=== PATIENT | male | born 2000 | race Caucasian/White ===

== ENCOUNTER 2022-01-09 22:52 | Emergency (ER) | payer OTHER ==
[2022-01-09] MEDS ORDERED: Morphine 4 MG/ML VIAL ONE ×2 (23:04→23:43)
[2022-01-09] MEDS ORDERED: Ondansetron PF 4 MG/2 ML Vial ONE (23:04)
[2022-01-09] MEDS ORDERED: Lactated Ringer's 1,000 ML ONE (23:22)
[2022-01-09] MEDS ORDERED: Bacitracin 1 PK ONE (23:42)
[2022-01-10] MEDS ORDERED: Morphine 4 MG/ML VIAL ONE (01:03)
[2022-01-10] MEDS ORDERED: Lactated Ringer's 1,000 ML ONE (01:03)
[2022-01-10] MEDS ORDERED: Boostrix 0.5 ML (Tdap) VIAL (>/=7 yrs of age) ONE (01:30)
[2022-01-10] MEDS ORDERED: Acetaminophen 325 MG TAB ONE (01:46)
[2022-01-10] MEDS ORDERED: HYDROcodone/Acetaminophen 5/325 mg Tablet ONE (01:46)
== END 2022-01-10 02:06 | disposition short-term general hospital (02) ==
LOC: MADERS 22:52
DX: T23.251A Burn of second degree of right palm, initial encounter (principal); T23.241A Burn of second degree of multiple right fingers (nail), including thumb, initial encounter; T23.252A Burn of second degree of left palm, initial encounter; T23.232A Burn of second degree of multiple left fingers (nail), not including thumb, initial encounter; T31.0 Burns involving less than 10% of body surface; Z23 Encounter for immunization; X08.8XXA Exposure to other specified smoke, fire and flames, initial encounter
CPT/HCPCS: 16020; 90715; 94760; 96361; 96374; 96375; 96376; J2270; J2405; J7120